=== PATIENT | male | born 1970 | race Caucasian/White ===

== ENCOUNTER 2020-03-01 10:32 | Outpatient (CLI) | payer BC, SELFPAY ==
--- NOTE | 2020-03-01 10:55 | MR_ITS ---
WS: [id number] MRI ABDOMEN with and without CONTRAST. COMPARISON: 01/04/2019 and 04/02/2015 Multiplanar, multisequence imaging is performed with and without contrast. Spleen is normal size measuring 10.5 cm in length. There are numerous subcentimeter T2 hyperintensity scattered throughout the spleen. The largest measures 6.3 mm at the hilum. On the postcontrast image s these do not enhance. I also believe these are probably present on the prior CT from 04/02/2015 wit h no change since 01/04/2019 CT evaluation. The liver is normal size. Normal gallbladder. No bile duct dilatation in the pancreas is normal. Mild bilateral perinephric stranding. Exophytic 13 mm cyst from the mid RIGHT kidney. RIGHT renal mass do es not enhance. No adrenal mass. No pleural fluid or ascites. Visualized aorta is normal. Portal vein and splenic veins are normal. MR/MR abdomen wo/w con* [id number] IMPRESSION: 1. Normal size spleen with no enhancing masses. Previously described lesions w ithin the spleen are probably small benign cysts. 2. RIGHT renal cyst measures 13 mm. 3. Normal gallbladder.
== END 2020-03-01 10:33 | disposition home or self-care (01) ==
PROVIDERS: Family Provider Family Medicine; PCP Physician Assistant; Visit Provider Family Medicine
DX: D73.89 Other diseases of spleen (principal); Q61.01 Congenital single renal cyst
CPT/HCPCS: 74183; A9579

== ENCOUNTER 2020-09-29 09:01 | Outpatient (CLI) | payer BC, SELFPAY ==
--- NOTE | 2020-09-29 09:00 | CT_ITS ---
WS: [id number] CT ABDOMEN AND PELVIS WITH CONTRAST HISTORY: DIVERTICULITIS TECHNIQUE: Imaging performed of the abdomen and pelvis with IV contrast. Single phase imaging of the abdomen. Coronal and sagittal reformats are submitted. All CT scans at [facility] use at least one of these dose optimization techniques: automated exposure control; mA and/or kV adjustment per patient size (includes targeted exams where dose is matched to clinical indication); or iterativ e reconstruction. IV CONTRAST: Omnipaque 300; 95 mL IV. Oral contrast: Yes. DLP: 1188.63 mGycm COMPARISON: MRI 03/01/2020, CT 01/25/2014 and 03/31/2013 Lower thorax: Small granuloma at the LEFT lung base is stable since 2013. Heart is normal size. No hi atal hernia. Liver/biliary system: Normal size with no intrahepatic dilatation. Gallbladder: Normal. No gallstones or wall thickening. No pericholecystic fluid. Pancreas: Normal size pancreas and pancreatic duct. No adjacent inflammation. Spleen: Mild heterogeneity within normal size spleen. No enhancing masses or interval change. Adrenal glands: Normal. Right kidney: Cortical cyst anterior mid kidney is stable. This is a complex cyst measuring 11 x 12 m m. No solid mass or obstruction. Left kidney: Scattered hypodensities within the cortex. These are too small to characterize but uncha nged since 03/01/2020. Aorta: Mild atherosclerosis with no aneurysm. Lymphadenopathy: None. Free fluid: None. GI tract: The appendix is not definitely identified. Numerous diverticula noted throughout the descen ding and sigmoid colon. No acute inflammation. Abdominal wall: Fat containing umbilical hernia. Pelvis: Mildly enlarged prostate gland with central calcifications. Urinary bladder is normally diste nded. Bones: Unremarkable. CT/CT abdomen pelvis w con* [id number] IMPRESSION: 1. Descending and sigmoid diverticulosis without acute diverticulitis. 2. No acute abdominal or pelvic abnormalities are identified. 3. Stable bilateral renal cysts. 4. No ascites or adenopathy.
[2020-09-29] MEDS: iohexol 300 mg/mL 50 mL Btl PO (09:25)
[2020-09-29] MEDS: iohexol 300 mg/mL 100 mL Btl IV (10:42)
== END 2020-09-29 09:02 | disposition home or self-care (01) ==
PROVIDERS: Family Provider Family Medicine; PCP Family Medicine; Visit Provider Nurse Practitioner Family
DX: K57.92 Diverticulitis of intestine, part unspecified, without perforation or abscess without bleeding (principal); Q61.02 Congenital multiple renal cysts; K57.30 Diverticulosis of large intestine without perforation or abscess without bleeding; N40.0 Benign prostatic hyperplasia without lower urinary tract symptoms
CPT/HCPCS: 74177; Q9967

== ENCOUNTER 2021-04-24 17:57 | Emergency (ER) | payer BC, SELFPAY ==
[2021-04-24 19:03] VITALS: PULSE 72; RESP 18; TEMP 36.8; O2SAT 99; BMI 26.4
--- NOTE | 2021-04-24 20:11 | ED_ITS ---
HPI - Fall General: Chief Complaint: Fall Stated Complaint: Injury Left Ribs Time Seen by Provider: 04/24/21 19:59 History of Present Illness: HPI Narrative: Patient is a 50-year-old male comes to the ED with left rib pain. Patient says just prior to arrival he was standing on a ladder approximately 2 feet near. He says the ladder shifted and he fell down in the left side of his ribs hit the ladder. Denies any head trauma, loss of consciousness or headache. He rates his pain currently a 6 out of 10 is all located in the left lower lateral ribs. He endorses pain in the left side of ribs when he takes a deep breath. He has not taken anything for pain before coming to the ED. Associated symptoms-after fall: Denies abdominal pain, chest pain, headache(s), hematuria or neck pain Review of Systems Const: Denies: fever(s), chills or fatigue Eyes: Denies: change in vision or eye discomfort ENMT: Denies: throat pain, odynophagia, nasal discharge or nasal congestion Card: Reports: other (left rib pain); Denies: chest pain, palpitations, edema, swelling of feet/ankles, dyspnea on exertion or orthopnea Resp: Reports: pain on inspiration (left rib pain); Denies: dyspnea, productive cough or non-productive cough GI: Denies: abdominal pain, nausea, vomiting, diarrhea, constipation or hematochezia : Denies: flank pain, difficulty urinating, dysuria or hematuria Musc: Denies: neck pain, back pain or extremity swelling Skin/Breast: Denies: rash or new lesions Neuro: Denies: headache(s), numbness in extremities or weakness in extremities PFS ED PFSH: Medical History Diverticula of colon Family History Other Cancer Hypertension Social History Smoking and tobacco status: never smoked Alcohol intake: never Physical Exam Const: COMMON NORMALS: no acute distress, patient oriented x3, healthy appearing and alert GENERAL APPEARANCE: cooperative and comfortable HENMT: COMMON NORMALS: normocephalic HEAD & SCALP: normocephalic MOUTH: Normal oral and palatal mucosa present THROAT: posterior oropharynx normal and uvula midline Neck/C-Spine: COMMON NORMALS: supple GENERAL: Yes normal visual inspection Chest: COMMONS NORMALS: normal inspection of the chest CHEST: Yes tenderness rib left mid-axillary line involving the 8th rib and involving the 9th rib Resp: COMMON NORMALS: normal respiratory effort, No retractions, No use of accessory muscles and clear to auscultation bilaterally AUSCULTATION: clear to auscultation bilaterally Cardio: COMMON NORMALS: regular rate, regular rhythm, S1 normal heart sound present, S2 normal heart sound present, No gallops present (Cardio), No clicks present (Cardio), No murmurs present (Cardio) and Peripheral pulses 2+ throughout RATE: regular rate RHYTHM: regular rhythm HEART SOUNDS: S1 normal heart sound present and S2 normal heart sound present PERIPHERAL PULSES: Peripheral pulses 2+ throughout GI: COMMON NORMALS: Normal to inspection, nondistended, normoactive bowel sounds present, Soft to palpation, non-tender and no masses PALPATION: Yes Soft to palpation : COMMON NORMALS: Yes no CVA tenderness BLADDER/KIDNEY EXAM: Yes no CVA tenderness Back/Pelvis: COMMON NORMALS: no CVA tenderness Extremity: COMMON NORMALS: normal to inspection Neuro: COMMON NORMALS: patient oriented x3 and moves all extremities SENSORIUM/ORIENTATION: Yes alert Skin: GENERAL SKIN EXAM: dry skin Course Vital Signs: Vital signs: Vital Signs Temperature 98.3 F 04/24/21 19:03 Pulse Rate 72 04/24/21 19:03 Respiratory Rate 18 04/24/21 19:03 Pulse Oximetry 99 04/24/21 19:03 MDM - Fall MDM Narrative: Medical decision making narrative: Patient is a 50-year-old male comes to the ED with left rib pain after fall. Denies any head trauma or loss of consciousness. Denies any shortness of breath or any other chest pain or injury. Vital stable. Patient appears healthy and in no acute distress or pain. He does have some lateral left rib tenderness around ribs #8 9. X-ray of left ribs show fracture at ninth rib. Patient was discharged home with hydrocodone for pain and also sent home with incentive spirometer to help with his breathing. He was told apply cold pack on sore ribs to help with symptoms. Follow-up with PCP in 5 days for reevaluation. Return to ED precautions given. Patient understood and agreed with plan. Imaging Data^: CXR: Attestation: I personally reviewed and interpreted this imaging study as follows: My impression: Left rib x-ray?nondisplaced 9th rib fracture noted. Discharge Plan Discharge Patient Disposition: Home Clinical Impression: Left rib fracture Qualifiers: Encounter type: initial encounter Rib fracture type: single rib Fracture type: closed Qualified Code(s): S22.32XA - Fracture of one rib, left side, initial encounter for closed fracture Condition: Stable Prescriptions: No Action zolpidem 10 mg tablet PO .at night RF: 0 omeprazole 20 mg capsule,delayed release(DR/EC) 20 mg PO DAILY RF: 0 ciprofloxacin HCl [Cipro] 500 mg tablet 500 mg PO Q12H 7 Days Qty: 14 RF: 0 metronidazole 500 mg tablet 500 mg PO BID Qty: 14 RF: 0 Discharge Orders: Discharge ED (Routine); Ordered 04/24/21 Ordered By: Pablito Russell Referrals: Syed Benavides MD [Primary Care Provider] - Discharge Diet: Regular Discharge Activity: Resume usual activity Patient Instructions: Rib Fracture (ED), Opioid Safety Activity Restrictions/Additional Instructions: Follow-up with medical provider as directed in about 5 days for reevaluation. Apply cold pack on sore area and ribs and rest and limit activity and lifting for the next 1 to 2 weeks pending symptoms. Take medications as prescribed. You can also take [id number] ibuprofen up to 800 mg every 8 hours in betwe en your doses of hydrocodone to help with pain as needed. Make sure to use incentive spirometer to help with breathing and strengthening your lungs. Return to the ER or your medical provider if condition worsens. Please read and understand discharge instructions. Thank you for choosing [facility] for your healthcare needs today. Please realize this is an emergency room and that we are providing you with a medical screening exam and this may not be complete and all inclusive of all the testing and or work up that you may need to determine your ailment or severity of your illness. It is very important that you follow up as instructed or that you return to the Emergency Department should you have concerns or if your condition changes or worsens in any way. Coding Level of Care Code ED Belt Lacer for Ayo Raza Exam Comprehensive
--- NOTE | 2021-04-24 20:11 | XRR_ITS ---
PROCEDURE INFORMATION: Exam: XR Left Ribs with PA Chest Exam date and time: 04/24/2021 8:11 PM Age: 50 years old Clinical indication: Injury or trauma; Fall; Rib area, left side; Blunt trauma; Additional info: Fall with left side rib pain TECHNIQUE: Imaging protocol: XR Left ribs with PA chest. Views: 3 views COMPARISON: CT abdomen pelvis w con* [id number] 09/29/2020 10:40 AM FINDINGS: Lungs: Unremarkable. No consolidation. Pleural spaces: The left costophrenic angle is somewhat obscured and small pleural effusion cannot be excluded. Heart/Mediastinum: Unremarkable. No cardiomegaly. Bones/joints: There is smooth appearing contour abnormality at the anterolateral aspects of the left 6th and 7th ribs. XR/XR ribs LT mn 3V w [id number] IMPRESSION: There is smooth appearing contour abnormality at the anterolateral aspects of the left 6th and 7th ribs. This may represent a chronic fracture site. If acute fracture is suspected at these locations, CT scan of the thorax is recommended for further evaluation.
[2021-04-24 21:34] VITALS: RESP 16
== END 2021-04-24 21:35 | disposition home or self-care (01) ==
PROVIDERS: Emergency Provider Physician Assistant; PCP Family Medicine
DX: S22.32XA Fracture of one rib, left side, initial encounter for closed fracture (principal); W11.XXXA Fall on and from ladder, initial encounter
CPT/HCPCS: 71101; 99283

== ENCOUNTER 2022-01-12 07:11 | Outpatient (CLI) | payer BC, SELFPAY ==
--- NOTE | 2022-01-12 07:43 | CT_ITS ---
WS: [id number] CT ABDOMEN AND PELVIS WITH CONTRAST HISTORY: LOWER ABDOMEN PAIN, history of diverticulitis. TECHNIQUE: Imaging performed of the abdomen and pelvis with IV contrast. Single phase imaging of the abdomen. Coronal and sagittal reformats are submitted. All CT scans at [facility] use at [address] [facility] one of these dose optimization techniques: automated exposure control; mA and/or kV adjustment per patient size (includes targeted exams where dose is matched to clinical indication); or iterative re construction. IV CONTRAST: Omnipaque 350; 95 mL IV. Oral contrast: Yes DLP: 1215.58 mGy.cm COMPARISON: 09/29/2020 Lower thorax: Lung bases are clear. Heart is normal size. Small hiatal hernia. Liver/biliary system: Normal size with no intrahepatic dilatation. Gallbladder: Normal. No gallstones or wall thickening. No pericholecystic fluid. Pancreas: Normal size pancreas and pancreatic duct. No adjacent inflammation. Spleen: Normal size spleen. There are a few areas of decreased attenuation and nodularity within the spleen. Very similar to the prior examination. Also noted on the study from 2019. Adrenal glands: Normal. Right kidney: Normal size RIGHT kidney. Well-circumscribed exophytic mass from the mid kidney measure s 12 mm in diameter. Hounsfield units are elevated. This exophytic mass is been noted on prior studie s dating back several years. Probably a complex cyst. No increase in size. No renal obstruction. Left kidney: Scattered areas of decreased attenuation throughout the kidney are stable. No solid mass or obstruction. Aorta: Mild atherosclerosis with no aneurysm. Lymphadenopathy: None. Free fluid: None. GI tract: Normally distended stomach. No small bowel obstruction. Mild fecal retention and constipati on. Numerous diverticula in the descending and sigmoid colon. No acute diverticulitis. There is mild wall thickening the sigmoid from prior diverticulitis. Appendix not identified. Abdominal wall: Fat containing umbilical hernia. Pelvis: No free fluid or adenopathy within the pelvis. Mild prostate gland enlargement with central c alcifications. 11 Bones: Unremarkable. CT/CT abdomen pelvis w con* [id number] IMPRESSION: 1. Diverticulosis within the descending and sigmoid colon without evidence for acute diverticulitis. 2. Stable low-attenuation mass RIGHT kidney. Mass measures 12 mm in diameter. Probably a complex cyst. Less likely low-level renal cell neoplasm due to its s tability.
[2022-01-12] MEDS: iohexol 350 mg/mL 100 mL Btl IV (09:07)
[2022-01-12] MEDS: barium sulfate 450 mL Oral Susp PO (09:08)
== END 2022-01-12 07:12 | disposition home or self-care (01) ==
PROVIDERS: PCP Family Medicine; Visit Provider Nurse Practitioner
DX: R10.30 Lower abdominal pain, unspecified (principal); K57.30 Diverticulosis of large intestine without perforation or abscess without bleeding; N28.89 Other specified disorders of kidney and ureter
CPT/HCPCS: 74177